=== PATIENT | male | born 1970 | race Caucasian/White ===

== ENCOUNTER 2019-10-18 11:10 | Emergency (ER) | payer OTHER ==
[~2019-10-18] VITALS: Ht 185.4 cm; Wt 95.3 kg
[2019-10-18] MEDS ORDERED: NS 1000ML 1,000 ML IV STA (11:40)
[2019-10-18 11:55] LABS: BASOPHIL # 0.1 10^3/uL (0.0-0.1); BASOPHIL % 0.6 % (0.0-0.2); EOSINOPHIL # 0.3 10^3/uL (0.0-0.2); EOSINOPHIL % 3.6 % (0.0-5.0); LYMPHOCYTES # 2.78 10^3/uL1 (1.0-4.8); LYMPHOCYTES % 32.1 % (24.0-44.0); MEAN CORP HGB 33.3 pg (26-34); MONOCYTES # 0.7 10^3/uL (0.3-0.8); MONOCYTES % 7.6 % (5.0-12.0); NEUTROPHIL # 4.8 10^3/uL (1.8-7.7); NEUTROPHILS % 55.4 % (41.0-85.0); PLATELET COUNT 223 10^3/uL (150-400); RED CELL DISTRIBUTION WIDTH 13.4 % (11.5-14.5)
--- NOTE | 2019-10-18 11:55 | PCM.EKG ---
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
--- NOTE | 2019-10-18 11:57 | ER.PDOC ---
General Chief Complaint: Requesting Medical Care Stated Complaint: LOWER ABD PAIN Time seen by MD: 11:56 Source: patient Exam Limitations: no limitations History of Present Illness Initial Comments Abdominal pain RLQ for 1 week. Severity/Quality: moderate, sharpness Radiation: no radiation Associated Symptoms: denies symptoms Exacerbated by: nothing Relieved By: nothing Vital Signs First Vital Signs Date Time Temp Pulse Resp B/P (MAP) Pulse Ox O2 Delivery O2 Flow Rate FiO2 10/18/19 12:02 98.1 69 18 98 10/18/19 12:02 126/68 (87) Last Vital Signs Date Time Temp Pulse Resp B/P (MAP) Pulse Ox O2 Delivery O2 Flow Rate FiO2 10/18/19 12:02 98.1 69 18 10/18/19 12:02 126/68 (87) 98 Constitutional: no symptoms reported Respiratory: no symptoms reported Cardiovascular: no symptoms reported Gastrointestinal: see HPI Genitourinary: no symptoms reported All Other Systems: Reviewed and Negative Physical Exam General Appearance: No Apparent Distress, WD/WN Neck: Non-Tender, Full Range of Motion, Supple, Normal Inspection Respiratory: chest non-tender, lungs clear, normal breath sounds, no respiratory distress, no accessory muscle use Cardiovascular: Normal Peripheral Pulses, Regular Rate, Rhythm, No Edema, No Gallop, No JVD, No Murmur Gastrointestinal: Normal Bowel Sounds, No Organomegaly, No Pulsatile Mass, Gu arding, Tenderness (RLQ) Back: Normal Inspection, No CVA Tenderness, No Vertebral Tenderness Extremities: Normal Range of Motion, Non-Tender, Normal Inspection, No Pedal Edema, No Calf Tenderness, Normal Capillary Refill, Pelvis Stable 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 (10/18/19 11:40) Urinalysis (10/18/19 11:40) 0.9 % Sodium Chloride (Ns 1000ml) (10/18/19 11:40) Ekg-Routine (10/18/19 11:40) 0.9 % Sodium Chloride (Ns 1000ml) (10/18/19 12:24) Vital Signs Date Time Temp Pulse Resp B/P (MAP) Pulse Ox O2 Delivery O2 Flow Rate FiO2 10/18/19 12:02 98.1 69 18 10/18/19 12:02 98.1 69 18 126/68 (87) 98 10/18/19 12:02 98.1 69 18 98 Administered Medications Medications (Trade) Dose Ordered Sig/Ramon Route PRN Reason Start Time Stop Time Status Last Admin Dose Admin Sodium Chloride 1,000 ml @ 1,200 mls/hr Q50M STAT IV 10/18/19 11:40 10/18/19 12:29 DC 10/18/19 12:30 1,200 MLS/HR Laboratory Tests Test 10/18/19 11:48 10/18/19 13:20 White Blood Count 8.7 10^3/uL (4.5-11.0) Red Blood Count 4.47 10^6/uL (4.50-5.90) L Hemoglobin 14.9 g/dL (13.9-16.3) Hematocrit 42.5 % (37.0-53.0) Mean Corpuscular Volume 95.1 fL (78-100) Mean Corpuscular Hemoglobin 33.3 pg (26-34) Mean Corpuscular Hemoglobin Concent 35.1 g/dL (33-36.5) Red Cell Distribution Width 13.4 % (11.5-14.5) Platelet Count 223 10^3/uL (150-400) Mean Platelet Volume 9.0 fL (7.8-11.0) Neutrophils (%) (Auto) 55.4 % (41.0-85.0) Lymphocytes (%) (Auto) 32.1 % (24.0-44.0) Monocytes (%) (Auto) 7.6 % (5.0-12.0) Neutrophils # (Auto) 4.8 10^3/uL (1.8-7.7) Lymphocytes # (Auto) 2.78 10^3/uL1 (1.0-4.8) Monocytes # (Auto) 0.7 10^3/uL (0.3-0.8) Absolute Immature Granulocyte (auto 0.06 10^3 u/L (0-2) Absolute Eosinophils (auto) 0.3 10^3/uL (0.0-0.2) H Immature Granulocytes % 0.70 % (0.00-0.50) H Eosinophils % 3.6 % (0.0-5.0) Basophils % 0.6 % (0.0-0.2) H Basophils # 0.1 10^3/uL (0.0-0.1) Prothrombin Time 10.0 SEC (9.3-11.3) Prothrombin Time INR (Non-Therap) 1.0 Activated Partial Thromboplast Time 22.7 SEC (24.67-30.72) Sodium Level 137 mmol/L (132-145) Potassium Level 4.1 mmol/L (3.6-5.2) Chloride Level 104.0 mmol/L (96-109) Carbon Dioxide Level 26.7 mmol/L (20.0-32) Anion Gap 10.4 Blood Urea Nitrogen 14 mg/dL (7-18) Creatinine 0.83 mg/dL (0.59-1.40) Estimated GFR () 119.2 (>/=60) Est GFR (CKD-EPI)(Non-Afr [place]) 98.5 (>/=60) BUN/Creatinine Ratio 16.0 Glucose Level 132 mg/dL (70-110) H Calcium Level 8.6 mg/dL (8.4-10.5) Total Bilirubin 0.6 mg/dL (0.2-1.0) Aspartate Amino Transferase (AST) 22 U/L (0-35) Alanine Aminotransferase (ALT) 38 U/L (12-78) Alkaline Phosphatase 94 U/L (50-136) Total Protein 7.1 g/dL (6.4-8.2) Albumin 3.6 g/dL (3.4-5.0) Globulin 3.5 Lipase 117 U/L (114-286) Urine Collection Type CCMS Urine Color YELLOW (YELLOW) Urine Appearance CLEAR (CLEAR) Urine Bilirubin NEGATIVE MG/DL (NEGATIVE) Urine Ketones NEGATIVE (NEGATIVE) Urine Specific [place] 1.015 (1.005-1.035) Urine pH 5.5 (5.0-6.0) Urine Protein NEGATIVE (NEGATIVE) Urine Urobilinogen NORMAL (NEGATIVE) Urine Nitrate NEGATIVE (NEGATAIVE) Urine Leukocyte Esterase NEGATIVE (NEGATIVE) Urine Blood NEGATIVE (NEGATIVE) Urine Glucose NORMAL (NEGATIVE) Progress Progress Labs are unremarkable. EKG/XRAY/CT/US CT Comments: CT abdomen/pelvis: Normal appendix. No acute findings. Departure Time of Disposition: 14:13 Disposition: 01 HOME, SELF-CARE Impression: Primary Impression: Nonspecific abdominal pain Condition: Stable Referrals: PCP,UNKNOWN (PCP) PRIMARY CARE PROVIDER Additional Instructions: Ibuprofen Tramadol F/U with your PCP in 1-2 days Return to ED if worsening pain or concerns Duration or Time Spent with Pa: 60 min DAWSON ADAME MD Oct 18, 2019 11:57
[2019-10-18 12:02] VITALS: BP 126/68
[2019-10-18 12:08] LABS: CALCIUM 8.6 mg/dL (8.4-10.5); CARBON DIOXIDE 26.7 mmol/L (20.0-32)
[2019-10-18] MEDS ORDERED: NS 1000ML 1,000 ML ONE (12:24)
--- NOTE | 2019-10-18 13:28 | DIREP ---
PROCEDURE:CT ABDOMEN/PELVIS W/ CONTRAST COMPARISON:None. INDICATIONS:RLQ abdominal pain TECHNIQUE:Axial images were created through the abdomen and pelvis with non-ionic intravenous contrast material. No oral contrast was administered. Sagittal and coronal reconstructions were performed from source images. FINDINGS: LUNG BASES:Normal. No visible pulmonary or pleural disease. Pacemaker leads are present in the right cardiac chambers. LIVER:Normal. No significant liver lesions are identified. BILIARY:Normal. No visible dilatation or calcification. PANCREAS:Normal. No lesion, fluid collection, ductal dilatation, or atrophy. SPLEEN:Normal. No enlargement or focal lesion. ADRENALS:Normal. No mass or enlargement. URINARY TRACT:1 cm hypodensity medial upper pole right kidney, too small to characterize perhaps a small cyst. AORTA/VASCULAR:There are aortic atherosclerotic calcifications present. No aneurysm. RETROPERITONEUM:Normal. No mass or adenopathy. BOWEL/MESENTERY:The appendix is visualized and appears normal. There is no intestinal obstruction, free fluid, free air or mesenteric inflammatory changes. ABDOMINAL WALL:Normal. No mass or hernia. PELVIC ORGANS:Normal. No visible mass. Pelvic organs appropriate for patient age. BONES:Normal for age. No bony lesion or acute fracture. OTHER:Negative. CONCLUSION: 1. Normal appendix. No acute findings. Dictated by: John Tinsley MD on 10/18/2019 at 01:38 PM
[2019-10-18 13:44] LABS: APPEARANCE,URINE CLEAR (CLEAR); UA COLOR YELLOW (YELLOW)
[2019-10-18 13:47] LABS: BILIRUBIN,URINE NEGATIVE (NEGATIVE); UROBILINOGEN,URINE NORMAL (NEGATIVE)
== END 2019-10-18 14:28 | disposition home or self-care (01) ==
LOC: ER 11:10
DX: R10.31 Right lower quadrant pain (principal)
CPT/HCPCS: 36415; 74177; 80053; 81002; 83690; 85025; 85610; 85730; 93005; 96360; 99285; J7030; Q9965